=== PATIENT | female | born 1995 | race Caucasian/White ===

== ENCOUNTER 2016-05-28 22:36 | Emergency (ER) | payer BC ==
[~2016-05-28] VITALS: Ht 160 cm; Wt 95.7 kg
[2016-05-28 23:22] LABS: BASOPHIL % 0.5 % (0-2); PLATELET COUNT 261 x10^3mcL (130-400)
[2016-05-28 23:23] LABS: RED CELL DISTRIBUTION WIDTH 14.8 % (11.5-14.5)
[2016-05-28 23:33] LABS: CALCIUM 9.2 mg/dL (8.5-10.1); CARBON DIOXIDE 27.8 mmol/L (21-32); CHLORIDE SERUM 103 mmol/L (98-107); GFR1 > 60 mL/min; GLUCOSE SERUM 84 mg/dL (74-106); POTASSIUM SERUM 3.5 mmol/L (3.5-5.1); SODIUM SERUM 141 mmol/L (136-145)
[2016-05-28 23:38] LABS: ALBUMIN 4.1 g/dL (3.4-5.0); ALKALINE PHOSPHATASE 48 U/L (46-116); ALT/SGPT 14 U/L (14-59); AMYLASE 44 U/L (25-115); AST/SGOT 9 U/L (15-37); BILIRUBIN TOTAL 0.4 mg/dL (0.20-1.00); LIPASE 87 IU/L (73-393); TOTAL PROTEIN, SERUM 7.8 g/dL (6.4-8.2)
[2016-05-29 01:32] VITALS: BP 135/57
== END 2016-05-29 01:32 | disposition home or self-care (01) ==
LOC: ED 22:36
PROVIDERS: Emergency Medicine
DX: R10.30 Lower abdominal pain, unspecified (principal); R11.10 Vomiting, unspecified; F42.9 Obsessive-compulsive disorder, unspecified; Z79.899 Other long term (current) drug therapy
CPT/HCPCS: J2270; J2405; J2765; Q0092

== ENCOUNTER 2019-02-26 10:32 | Emergency (ER) | payer MEDICAID ==
[~2019-02-26] VITALS: Ht 160 cm; Wt 101.6 kg
[2019-02-26 10:45] VITALS: Ht 160 cm; Wt 101.6 kg
[2019-02-26 11:31] LABS: BASOPHIL % 1.7 % (0-2); PLATELET COUNT 240 x10^3mcL (130-400)
[2019-02-26 11:34] LABS: RED CELL DISTRIBUTION WIDTH 14.8 % (11.5-14.5)
[2019-02-26 11:56] LABS: CARBON DIOXIDE 30.9 mmol/L (21-32); CHLORIDE SERUM 101 mmol/L (98-107); CREATININE SERUM 0.9 mg/dL (0.6-1.0); GLUCOSE SERUM 88 mg/dL (74-106); POTASSIUM SERUM 3.9 mmol/L (3.5-5.1)
[2019-02-26 11:57] LABS: SODIUM SERUM 140 mmol/L (136-145); TOTAL PROTEIN, SERUM 8.4 g/dL (6.4-8.2)
[2019-02-26 11:58] LABS: BILIRUBIN TOTAL 0.34 mg/dL (0.20-1.00)
[2019-02-26 11:59] LABS: ALKALINE PHOSPHATASE 69 U/L (46-116); ALT/SGPT 19 U/L (14-59); AST/SGOT 12 U/L (15-37); C REACTIVE PROTEIN 1.7 mg/dL (<=0.9)
[2019-02-26 14:10] VITALS: BP 146/92
== END 2019-02-26 14:00 | disposition home or self-care (01) ==
LOC: ED 10:32
PROVIDERS: Emergency Medicine
DX: B09 Unspecified viral infection characterized by skin and mucous membrane lesions (principal); F42.9 Obsessive-compulsive disorder, unspecified
CPT/HCPCS: 36415